=== PATIENT | female | born 1965 | race African-American/Black ===

== ENCOUNTER 2020-12-24 10:48 | Emergency (ER) | payer OTHER ==
[~2020-12-24] VITALS: Ht 172.7 cm; Wt 122.0 kg
[2020-12-24 11:59] LABS: BASOPHILS % 0.5 % (0.0-2.0); HEMATOCRIT. 45.1 % (36.0-48.0); HEMOGLOBIN. 14.9 g/dL (12.0-16.0); LYMPHOCYTES % 13.9 % (20.0-50.0); MEAN CORPUSCULAR HEMOGLOBIN 28.5 pg (28.0-32.0); MEAN CORPUSCULAR VOLUME 86.5 fL (81.0-99.0); MEAN PLATELET VOLUME 8.6 fl (7.4-10.4); MONOCYTES % 4.8 % (2.0-8.0); NEUTROPHILS % 80.8 % (40.0-76.0); PLATELET 364 x1000/uL (130-400); RED BLOOD CELL COUNT 5.21 mill/uL (4.2-5.4); RED CELL DISTRIBUTION WIDTH 14.5 % (11.6-14.6)
[2020-12-24 12:06] LABS: CHLORIDE 96 mEq/L (98-107)
[2020-12-24] MEDS ORDERED: LEVETIRACETAM 500MG PREMIX 100 ML IV SCH (14:15)
[2020-12-24 17:45] VITALS: BP 166/94
== END 2020-12-24 22:16 | disposition short-term general hospital (02) ==
LOC: ER 10:48
DX: R56.9 Unspecified convulsions (principal); E11.9 Type 2 diabetes mellitus without complications; I10 Essential (primary) hypertension
CPT/HCPCS: 36415; 70450; 71045; 80053; 83880; 84484; 85025; 93005; 96365; 96366; 99285; J1953